=== PATIENT | male | born 1935 | race Caucasian/White ===

== ENCOUNTER 2021-02-19 07:11 | Inpatient (IN) ==
[2021-02-19] MEDS ORDERED: Morphine 4 MG/ML VIAL (1 ml) IV ONE (07:45)
[2021-02-19 07:58] LABS: Hematocrit 47 % (42-52); Hemoglobin 16.1 g/dL (14.0-18.0); Mean Corpuscular HGB Conc 34 g/dL (31-36); Mean Corpuscular Hemoglobin 33 pg (27-31); Mean Corpuscular Volume 98 fL (80-94); Platelet Count 278 10^3/uL (150-450); Red Blood Count 4.85 10^6 /uL (4.18-5.48); Red Cell Distribution Width 14 % (10-15); White Blood Count 4.9 10^3/uL (3.5-10.8)
[2021-02-19 08:01] LABS: Albumin/Globulin Ratio 1.2 (1-3); C Reactive Protein 6.94 mg/L (<8.01); Calcium 10.7 mg/dL (8.6-10.3); EGFR African American 46.1 (>60); EGFR Non-African American 38.1 (>60); Globulin 3.3 g/dL (2-4); Potassium 3.6 mmol/L (3.5-5.0); Total Bilirubin 0.8 mg/dL (0.2-1.0); Total Protein 7.3 g/dL (6.4-8.9)
[2021-02-19] MEDS ORDERED: Iodixanol (CONTRAST) 320 MG/ML 100 ML SDV IV ONE (08:11)
[2021-02-19] MEDS ORDERED: NS 0.9% IV ONE (08:15)
[2021-02-19 08:23] LABS: RBC Morphology Normal (Normal)
[2021-02-19] MEDS ORDERED: Piperacillin/Tazobac ADVAN 3.375 GM in NS 0.9% 100 ml BAG 100 ML IV ONE (09:02)
[2021-02-19] MEDS ORDERED: Ondansetron 4 mg VIAL 2 MG/ML 2 ml VIAL IV PRN (09:56)
[2021-02-19] MEDS ORDERED: HYDROmorphone 1 MG/1 ML SYRINGE IV SLOW PU PRN (09:56)
[2021-02-19] MEDS ORDERED: Midazolam 2 mg/2 ml VIAL 1 mg/ml 2 ml VIAL (2 mg) ONE (10:04)
[2021-02-19] MEDS ORDERED: Dexamethasone IV 4 MG/ML VIAL 1 ml VIAL ONE (10:04)
[2021-02-19] MEDS ORDERED: fentaNYL 250 mcg/5 ml 50 MCG/ML 5 ml VIAL (250 MCG) ONE (10:04)
[2021-02-19] MEDS ORDERED: Propofol 10 MG/ML 20 ML BTL ONE (10:04)
[2021-02-19] MEDS ORDERED: Rocuronium 50 mg VIAL 10 mg/ml 5 ml VIAL (50 mg) ONE ×2 (10:04→12:32)
[2021-02-19] MEDS ORDERED: Lidocaine 2% PF 5 ML VIAL ONE (10:05)
[2021-02-19] MEDS ORDERED: Bupivacaine 0.5% SDV PF 30ML VIAL ONE (10:40)
[2021-02-19] MEDS ORDERED: Phenylephrine IV 10 MG/ML 1 ml VIAL ONE (11:46)
[2021-02-19] MEDS ORDERED: Phenylephrine 40 mcg/mL 10mL (400mcg) SYRINGE ONE (11:46)
[2021-02-19] MEDS ORDERED: Ondansetron 4 mg VIAL 2 MG/ML 2 ml VIAL ONE (12:22)
[2021-02-19] MEDS ORDERED: Etomidate 20 mg/10 ml 2 MG/ML 10 ml VIAL ONE (12:23)
[2021-02-19 12:52] LABS: PCO2 Arterial 36 mmHg (35-45); PO2 Arterial 142 mmHg (80-100)
[2021-02-19] MEDS ORDERED: Sodium Bicarbonate 8.4% VIAL 1 MEQ/ML 50 ml VIAL (50 meq) ONE (13:04)
[2021-02-19] MEDS: Piperacillin/Tazobactam VIAL 3.375 GM in NS 0.9% 100 ml BAG 100 ML IVPB SCH ×2 (15:33→22:49)
[2021-02-19] MEDS ORDERED: fentaNYL 100 mcg/2 ml 50 MCG/ML VIAL IV SLOW PU ONE (15:35)
[2021-02-19] MEDS: fentaNYL INFUSION BAG 50MCG/ML 2,500 MCG/50 ML BAG IV SCH (15:57)
[2021-02-19] MEDS ORDERED: Norepinephrine 16MCG/ML IVPRE 4,000 MCG/250 ML BAG IV SCH (16:00)
[2021-02-19 16:29] LABS: PCO2 Arterial 33 mmHg (35-45); PO2 Arterial 111 mmHg (80-100)
[2021-02-19 17:03] LABS: INR 1.07 (0.82-1.09)
[2021-02-19 17:11] LABS: Albumin 2.1 g/dL (3.2-5.2); Albumin/Globulin Ratio 1.3 (1-3); Calcium 7.5 mg/dL (8.6-10.3); EGFR African American 82.3 (>60); Globulin 1.6 g/dL (2-4); Magnesium 1.5 mg/dL (1.9-2.7); Phosphorus 3.4 mg/dL (2.5-5.0); Total Bilirubin 0.9 mg/dL (0.2-1.0); Total Protein 3.7 g/dL (6.4-8.9)
[2021-02-19] MEDS: Lactated Ringers 1000 ml BAG 1,000 ML IV SCH (17:35)
[2021-02-19] MEDS: Chlorhexidine MOUTHWASH 0.12% 15 ML UDC SWISH SPIT SCH ×2 (17:37→22:51)
[2021-02-19] MEDS: Pantoprazole VIAL 40 MG VIAL IV SCH (17:37)
[2021-02-19] MEDS ORDERED: Magnesium Sulf 4 GM/100 ML IV 4,000 MG/100 ML BAG IVPB ONE (17:42)
[2021-02-19 19:35] LABS: Hematocrit 41 % (42-52); Hemoglobin 13.4 g/dL (14.0-18.0); Mean Corpuscular HGB Conc 33 g/dL (31-36); Mean Corpuscular Hemoglobin 33 pg (27-31); Mean Corpuscular Volume 100 fL (80-94); Mean Platelet Volume 8.3 fL (7.4-10.4); Platelet Count 222 10^3/uL (150-450); Red Blood Count 4.04 10^6 /uL (4.18-5.48); Red Cell Distribution Width 14 % (10-15); White Blood Count 3.3 10^3/uL (3.5-10.8)
[2021-02-19] MEDS: Norepinephrine 16MCG/ML IVPRE 4,000 MCG/250 ML BAG IV SCH ×2 (19:35→21:13)
[2021-02-19] MEDS: Hydrocortisone INJ 100 MG/2ML 2 ML VIAL IV SCH (19:38)
[2021-02-19 19:47] LABS: Urine Appearance Clear; Urine Bilirubin Negative (Negative); Urine Blood 2+ (Negative); Urine Color Amber; Urine Glucose Negative (Negative); Urine Ketones Trace (Negative); Urine Nitrite Negative (Negative); Urine Protein 1+(30 mg/dL) (Negative); Urine Specific Gravity 1.047 (1.002-1.030); Urine Urobilinogen Negative (Negative)
[2021-02-19 19:51] LABS: Urine Bacteria Absent (Absent); Urine Red Blood Cell 3+(>10/hpf) (Absent); Urine Squamous Epithelial Cell Present (Absent); Urine White Blood Cell Trace(0-5/hpf) (Absent)
[2021-02-19] MEDS: Phenylephrine IV 50 MG in NS 0.9% 250 ml 245 ML IV SCH (20:36)
[2021-02-19 20:56] LABS: RBC Morphology Normal (Normal)
[2021-02-19 20:57] LABS: ABS Lymphocytes 0.5 10^3/ul (1.0-4.8); ABS Monocytes 0.4 10^3/ul (0-0.8); ABS Neutrophils 2.4 10^3/ul (1.5-7.7); Eosinophil % 0.1 %; Lymphocyte % 14.6 %
[2021-02-19] MEDS: Norepinephrine IV 8 MG in NS 0.9% 500 ml BAG 492 ML IV SCH (22:49)
[2021-02-19] MEDS: Heparin 5000 UNITS/ML 1 mL VIAL SUBCUT SCH (22:51)
[2021-02-19] MEDS ORDERED: NS 0.9% IV SCH (23:00)
[2021-02-19] MEDS ORDERED: NOREPINEPHRINE IV SCH (23:00)
[2021-02-20] MEDS ORDERED: Norepinephrine 16MCG/ML IVPRE 0 MCG/0 ML BAG IV ONE (02:19)
[2021-02-20] MEDS: Norepinephrine IV 8 MG in NS 0.9% 500 ml BAG 492 ML IV SCH ×4 (02:22→15:35)
[2021-02-20] MEDS: Chlorhexidine MOUTHWASH 0.12% 15 ML UDC SWISH SPIT SCH ×6 (02:24→21:13)
[2021-02-20] MEDS ORDERED: Acetaminophen IV 1 GM/100ML 100 ML IVPB ONE (03:11)
[2021-02-20] MEDS: fentaNYL INFUSION BAG 50MCG/ML 2,500 MCG/50 ML BAG IV SCH (04:04)
[2021-02-20] MEDS: Lactated Ringers 1000 ml BAG 1,000 ML IV SCH ×2 (04:41→14:35)
[2021-02-20 04:45] LABS: Hematocrit 40 % (42-52); Hemoglobin 13.2 g/dL (14.0-18.0); Mean Corpuscular HGB Conc 33 g/dL (31-36); Mean Corpuscular Hemoglobin 33 pg (27-31); Mean Corpuscular Volume 99 fL (80-94); Mean Platelet Volume 8.6 fL (7.4-10.4); Platelet Count 216 10^3/uL (150-450); Red Blood Count 3.99 10^6 /uL (4.18-5.48); Red Cell Distribution Width 14 % (10-15); White Blood Count 6.6 10^3/uL (3.5-10.8)
[2021-02-20 05:00] LABS: Calcium 7.5 mg/dL (8.6-10.3); EGFR African American 44.3 (>60); EGFR Non-African American 36.6 (>60); Magnesium 2.4 mg/dL (1.9-2.7); Phosphorus 3.6 mg/dL (2.5-5.0)
[2021-02-20] MEDS: Phenylephrine IV 50 MG in NS 0.9% 250 ml 245 ML IV SCH ×3 (05:46→21:13)
[2021-02-20] MEDS: Heparin 5000 UNITS/ML 1 mL VIAL SUBCUT SCH ×3 (05:46→21:18)
[2021-02-20] MEDS: Hydrocortisone INJ 100 MG/2ML 2 ML VIAL IV SCH ×3 (05:46→21:18)
[2021-02-20] MEDS: Piperacillin/Tazobactam VIAL 3.375 GM in NS 0.9% 100 ml BAG 100 ML IVPB SCH ×3 (05:46→21:18)
[2021-02-20 05:51] LABS: ABS Lymphocytes 0.7 10^3/ul (1.0-4.8); ABS Monocytes 0.3 10^3/ul (0-0.8); ABS Neutrophils 5.6 10^3/ul (1.5-7.7); Lymphocyte % 10.4 %
[2021-02-20] MEDS ORDERED: Norepinephrine 16MCG/ML IVPRE 4,000 MCG/250 ML BAG IV ONE (09:26)
[2021-02-20] MEDS: Pantoprazole VIAL 40 MG VIAL IV SCH (09:33)
[2021-02-20] MEDS ORDERED: Vasopressin 100 UNITS in D5W 250 ml BAG 245 ML IV SCH (11:30)
[2021-02-20] MEDS: Vasopressin 100 UNITS in D5W 250 ml BAG 245 ML IV SCH (12:05)
[2021-02-20] MEDS ORDERED: D5LR 1000 ml BAG 1,000 ML IV SCH (19:00)
[2021-02-20 19:59] LABS: PCO2 Arterial 32 mmHg (35-45); PO2 Arterial 106 mmHg (80-100)
[2021-02-20 20:08] LABS: ABS Lymphocytes 0.5 10^3/ul (1.0-4.8); ABS Monocytes 0.3 10^3/ul (0-0.8); ABS Neutrophils 9.9 10^3/ul (1.5-7.7); Hematocrit 35 % (42-52); Hemoglobin 11.6 g/dL (14.0-18.0); Lymphocyte % 4.7 %; Mean Corpuscular HGB Conc 34 g/dL (31-36); Mean Corpuscular Hemoglobin 33 pg (27-31); Mean Corpuscular Volume 99 fL (80-94); Platelet Count 172 10^3/uL (150-450); Red Blood Count 3.51 10^6 /uL (4.18-5.48); Red Cell Distribution Width 14 % (10-15); White Blood Count 10.7 10^3/uL (3.5-10.8)
[2021-02-20 20:17] LABS: Blood Urea Nitrogen 39 mg/dL (6-24); CO2 Carbon Dioxide 15 mmol/L (22-32); Glucose 91 mg/dL (70-100); Sodium 140 mmol/L (135-145)
[2021-02-20 20:18] LABS: Anion Gap 9 mmol/L (2-11); Chloride 116 mmol/L (101-111); Potassium 5.2 mmol/L (3.5-5.0)
[2021-02-20 20:24] LABS: Troponin I 0.09 ng/mL (<0.03)
[2021-02-20] MEDS ORDERED: Dextrose 50% Syringe 50 ml 25 GM/50 ML SYRINGE IV PUSH ONE (21:21)
[2021-02-20] MEDS ORDERED: Dextrose 50% Syringe 50 ml 25 GM/50 ML SYRINGE IV PUSH PRN (21:21)
[2021-02-20 21:30] LABS: EGFR African American 36.4 (>60); EGFR Non-African American 30.1 (>60)
[2021-02-20 21:31] LABS: RBC Morphology Normal (Normal)
[2021-02-20] MEDS: Sodium Bicarb 8.4% Vial 50 ML 150 MEQ in D5W 1000 ml BAG 850 ML IV SCH (22:01)
[2021-02-21] MEDS: Chlorhexidine MOUTHWASH 0.12% 15 ML UDC SWISH SPIT SCH ×6 (00:14→22:03)
[2021-02-21] MEDS: Phenylephrine IV 50 MG in NS 0.9% 250 ml 245 ML IV SCH ×4 (01:53→22:46)
[2021-02-21] MEDS: fentaNYL INFUSION BAG 50MCG/ML 2,500 MCG/50 ML BAG IV SCH (03:23)
[2021-02-21 04:41] LABS: Hematocrit 33 % (42-52); Hemoglobin 11.1 g/dL (14.0-18.0); Mean Corpuscular HGB Conc 34 g/dL (31-36); Mean Corpuscular Hemoglobin 33 pg (27-31); Mean Corpuscular Volume 98 fL (80-94); Mean Platelet Volume 9.1 fL (7.4-10.4); Red Blood Count 3.35 10^6 /uL (4.18-5.48); Red Cell Distribution Width 14 % (10-15); White Blood Count 12.1 10^3/uL (3.5-10.8)
[2021-02-21 04:58] LABS: Albumin 2.3 g/dL (3.2-5.2); Albumin/Globulin Ratio 1.2 (1-3); EGFR Non-African American 31.4 (>60); Magnesium 2.4 mg/dL (1.9-2.7); Phosphorus 4.4 mg/dL (2.5-5.0); Potassium 4.8 mmol/L (3.5-5.0); Total Bilirubin 0.5 mg/dL (0.2-1.0); Total Protein 4.3 g/dL (6.4-8.9)
[2021-02-21 05:26] LABS: Toxic Granulation 2+
[2021-02-21 05:28] LABS: Burr Cells 2+
[2021-02-21 05:31] LABS: Basophilic Stippling 1+; Polychromasia 1+
[2021-02-21 05:34] LABS: Acanthocytes 1+; RBC Morphology Normal (Normal)
[2021-02-21 05:36] LABS: Howell Jolly Bodies Present
[2021-02-21 05:37] LABS: ABS Lymphocytes 0.5 10^3/ul (1.0-4.8); ABS Monocytes 0.3 10^3/ul (0-0.8); ABS Neutrophils 11.4 10^3/ul (1.5-7.7); Lymphocyte % 3.9 %
[2021-02-21 05:45] LABS: PCO2 Arterial 34 mmHg (35-45); PO2 Arterial 114 mmHg (80-100)
[2021-02-21] MEDS: Hydrocortisone INJ 100 MG/2ML 2 ML VIAL IV SCH ×3 (05:48→22:07)
[2021-02-21] MEDS: Heparin 5000 UNITS/ML 1 mL VIAL SUBCUT SCH ×3 (05:48→22:04)
[2021-02-21] MEDS: Piperacillin/Tazobactam VIAL 3.375 GM in NS 0.9% 100 ml BAG 100 ML IVPB SCH ×3 (05:49→22:07)
[2021-02-21] MEDS: Pantoprazole VIAL 40 MG VIAL IV SCH (08:18)
[2021-02-21] MEDS ORDERED: LORazepam 2 mg VIAL 1 ml IV PUSH PRN (08:56)
[2021-02-21] MEDS ORDERED: Lorazepam PYXIS KEY PRN (08:56)
[2021-02-21] MEDS: Saline FLUSH-CENTRAL 10 ML SYRINGE CENT\\PICC SCH ×2 (10:33→22:08)
[2021-02-21 15:30] LABS: PCO2 Arterial 36 mmHg (35-45); PO2 Arterial 105 mmHg (80-100)
[2021-02-21] MEDS: Sodium Bicarb 8.4% Vial 50 ML 150 MEQ in D5W 1000 ml BAG 850 ML IV SCH (18:03)
[2021-02-22] MEDS: Chlorhexidine MOUTHWASH 0.12% 15 ML UDC SWISH SPIT SCH ×6 (01:21→20:21)
[2021-02-22 04:40] LABS: Hematocrit 28 % (42-52); Hemoglobin 9.6 g/dL (14.0-18.0); Mean Corpuscular HGB Conc 34 g/dL (31-36); Mean Corpuscular Hemoglobin 33 pg (27-31); Mean Corpuscular Volume 97 fL (80-94); Mean Platelet Volume 9.3 fL (7.4-10.4); Platelet Count 133 10^3/uL (150-450); Red Blood Count 2.91 10^6 /uL (4.18-5.48); Red Cell Distribution Width 14 % (10-15); White Blood Count 12.1 10^3/uL (3.5-10.8)
[2021-02-22 04:57] LABS: Calcium 7.2 mg/dL (8.6-10.3); EGFR African American 46.7 (>60); EGFR Non-African American 38.6 (>60); Magnesium 2.5 mg/dL (1.9-2.7); Phosphorus 3.6 mg/dL (2.5-5.0); Potassium 4.1 mmol/L (3.5-5.0)
[2021-02-22 05:21] LABS: RBC Morphology Normal (Normal)
[2021-02-22 05:22] LABS: ABS Lymphocytes 0.5 10^3/ul (1.0-4.8); ABS Monocytes 0.2 10^3/ul (0-0.8); ABS Neutrophils 11.3 10^3/ul (1.5-7.7); Lymphocyte % 4.1 %
[2021-02-22] MEDS: Vasopressin 100 UNITS in D5W 250 ml BAG 245 ML IV SCH (05:52)
[2021-02-22] MEDS: Piperacillin/Tazobactam VIAL 3.375 GM in NS 0.9% 100 ml BAG 100 ML IVPB SCH ×3 (06:39→22:02)
[2021-02-22] MEDS: Hydrocortisone INJ 100 MG/2ML 2 ML VIAL IV SCH ×3 (06:39→22:02)
[2021-02-22] MEDS: Heparin 5000 UNITS/ML 1 mL VIAL SUBCUT SCH ×3 (06:40→22:02)
[2021-02-22] MEDS: Pantoprazole VIAL 40 MG VIAL IV SCH (09:21)
[2021-02-22] MEDS: Saline FLUSH-CENTRAL 10 ML SYRINGE CENT\\PICC SCH ×2 (09:21→22:09)
[2021-02-22] MEDS ORDERED: Furosemide 40 mg/4 ml IV VIAL ONE (11:09)
[2021-02-22] MEDS ORDERED: Furosemide 40 mg/4 ml IV VIAL IV SLOW PU ONE (11:18)
[2021-02-22] MEDS: Acetaminophen IV 1 GM/100ML 100 ML IVPB SCH ×2 (14:02→22:08)
[2021-02-22 16:00] LABS: PCO2 Arterial 34 mmHg (35-45); PO2 Arterial 78 mmHg (80-100)
[2021-02-22 16:43] LABS: Calcium 7.5 mg/dL (8.6-10.3); EGFR African American 47.3 (>60); EGFR Non-African American 39.1 (>60); Potassium 3.5 mmol/L (3.5-5.0)
[2021-02-22] MEDS: KCL 20 MEQ/100 ML IVPREMIX 20 MEQ/100 ML BAG IV SCH ×2 (17:45→20:01)
[2021-02-23] MEDS: Chlorhexidine MOUTHWASH 0.12% 15 ML UDC SWISH SPIT SCH ×6 (01:27→22:06)
[2021-02-23 05:12] LABS: Hematocrit 31 % (42-52); Hemoglobin 10.4 g/dL (14.0-18.0); Mean Corpuscular HGB Conc 34 g/dL (31-36); Mean Corpuscular Hemoglobin 33 pg (27-31); Mean Corpuscular Volume 97 fL (80-94); Mean Platelet Volume 9.2 fL (7.4-10.4); Platelet Count 101 10^3/uL (150-450); Red Blood Count 3.15 10^6 /uL (4.18-5.48); Red Cell Distribution Width 14 % (10-15); White Blood Count 12.3 10^3/uL (3.5-10.8)
[2021-02-23 05:16] LABS: Calcium 7.8 mg/dL (8.6-10.3); EGFR African American 54.4 (>60); EGFR Non-African American 44.9 (>60); Magnesium 2.6 mg/dL (1.9-2.7); Phosphorus 2.7 mg/dL (2.5-5.0); Potassium 3.7 mmol/L (3.5-5.0)
[2021-02-23 05:38] LABS: RBC Morphology Normal (Normal)
[2021-02-23 05:40] LABS: ABS Lymphocytes 0.5 10^3/ul (1.0-4.8); ABS Monocytes 0.3 10^3/ul (0-0.8); ABS Neutrophils 11.5 10^3/ul (1.5-7.7); Eosinophil % 0.1 %; Lymphocyte % 4.3 %; Nucleated Red Blood Cells % 0.2
[2021-02-23] MEDS: Heparin 5000 UNITS/ML 1 mL VIAL SUBCUT SCH ×3 (06:12→22:17)
[2021-02-23] MEDS: Acetaminophen IV 1 GM/100ML 100 ML IVPB SCH ×2 (06:12→13:58)
[2021-02-23] MEDS: Hydrocortisone INJ 100 MG/2ML 2 ML VIAL IV SCH ×3 (06:12→22:19)
[2021-02-23] MEDS: Piperacillin/Tazobactam VIAL 3.375 GM in NS 0.9% 100 ml BAG 100 ML IVPB SCH ×3 (06:13→22:20)
[2021-02-23] MEDS: Pantoprazole VIAL 40 MG VIAL IV SCH (08:56)
[2021-02-23] MEDS: Saline FLUSH-CENTRAL 10 ML SYRINGE CENT\\PICC SCH ×2 (08:57→22:20)
[2021-02-23 11:07] LABS: PCO2 Arterial 37 mmHg (35-45); PO2 Arterial 72 mmHg (80-100)
[2021-02-23] MEDS ORDERED: Metoprolol Tartrate 5 mg VIAL 5 ml VIAL (1 mg/ml) IV ONE (13:21)
[2021-02-23] MEDS ORDERED: KCL 20 MEQ/100 ML IVPREMIX 20 MEQ/100 ML BAG IV ONE (13:22)
[2021-02-23] MEDS ORDERED: Digoxin IV 0.5 MG/2 ML AMP (0.25 MG/ML) IV SLOW PU ONE (18:05)
[2021-02-23] MEDS ORDERED: HYDROmorphone 0.5 MG/0.5 ML SYRINGE IV SLOW PU PRN (21:46)
[2021-02-23] MEDS ORDERED: Acetaminophen IV 1 GM/100ML 100 ML IVPB ONE (22:18)
[2021-02-24] MEDS ORDERED: Metoprolol Tartrate 5 mg VIAL 5 ml VIAL (1 mg/ml) IV ONE (02:03)
[2021-02-24] MEDS: Chlorhexidine MOUTHWASH 0.12% 15 ML UDC SWISH SPIT SCH ×6 (03:10→20:23)
[2021-02-24] MEDS: Piperacillin/Tazobactam VIAL 3.375 GM in NS 0.9% 100 ml BAG 100 ML IVPB SCH ×3 (05:18→22:21)
[2021-02-24 06:08] LABS: Hematocrit 31 % (42-52); Hemoglobin 10.2 g/dL (14.0-18.0); Mean Corpuscular HGB Conc 34 g/dL (31-36); Mean Corpuscular Hemoglobin 32 pg (27-31); Mean Corpuscular Volume 97 fL (80-94); Mean Platelet Volume 9.5 fL (7.4-10.4); Platelet Count 103 10^3/uL (150-450); Red Blood Count 3.16 10^6 /uL (4.18-5.48); Red Cell Distribution Width 14 % (10-15); White Blood Count 12.3 10^3/uL (3.5-10.8)
[2021-02-24 06:17] LABS: Calcium 7.9 mg/dL (8.6-10.3); EGFR African American 74.8 (>60); EGFR Non-African American 61.8 (>60); Magnesium 2.6 mg/dL (1.9-2.7); Phosphorus 2.4 mg/dL (2.5-5.0); Potassium 3.8 mmol/L (3.5-5.0)
[2021-02-24 06:25] LABS: Macrocytosis 1+
[2021-02-24 06:26] LABS: ABS Lymphocytes 0.4 10^3/ul (1.0-4.8); ABS Monocytes 0.4 10^3/ul (0-0.8); ABS Neutrophils 11.4 10^3/ul (1.5-7.7); Anisocytosis 1+; Eosinophil % 0.1 %; Lymphocyte % 3.6 %; Nucleated Red Blood Cells % 0.1
[2021-02-24] MEDS: Pantoprazole VIAL 40 MG VIAL IV SCH (07:24)
[2021-02-24] MEDS: Hydrocortisone INJ 100 MG/2ML 2 ML VIAL IV SCH ×2 (07:24→20:23)
[2021-02-24] MEDS: Heparin 5000 UNITS/ML 1 mL VIAL SUBCUT SCH ×2 (07:24→13:21)
[2021-02-24] MEDS ORDERED: Potassium Phosphate IV 15 MMOLE in NS 0.9% 250 ml 250 ML IVPB ONE (07:57)
[2021-02-24] MEDS: Saline FLUSH-CENTRAL 10 ML SYRINGE CENT\\PICC SCH ×2 (09:36→22:22)
[2021-02-24] MEDS ORDERED: NS 0.45% 1000 ml BAG 1,000 ML IV SCH (16:00)
[2021-02-25] MEDS: Chlorhexidine MOUTHWASH 0.12% 15 ML UDC SWISH SPIT SCH ×3 (01:36→10:21)
[2021-02-25] MEDS: Piperacillin/Tazobactam VIAL 3.375 GM in NS 0.9% 100 ml BAG 100 ML IVPB SCH ×3 (05:57→21:27)
[2021-02-25 06:11] LABS: Hematocrit 30 % (42-52); Hemoglobin 10.1 g/dL (14.0-18.0); Mean Corpuscular HGB Conc 34 g/dL (31-36); Mean Corpuscular Hemoglobin 32 pg (27-31); Mean Corpuscular Volume 96 fL (80-94); Mean Platelet Volume 9.6 fL (7.4-10.4); Platelet Count 119 10^3/uL (150-450); Red Blood Count 3.12 10^6 /uL (4.18-5.48); Red Cell Distribution Width 14 % (10-15)
[2021-02-25 06:27] LABS: Calcium 7.8 mg/dL (8.6-10.3); EGFR African American 91.4 (>60); EGFR Non-African American 75.5 (>60); Magnesium 2.2 mg/dL (1.9-2.7); Phosphorus 2.7 mg/dL (2.5-5.0); Potassium 3.5 mmol/L (3.5-5.0)
[2021-02-25 08:15] LABS: INR 1.14 (0.82-1.09)
[2021-02-25] MEDS: Pantoprazole VIAL 40 MG VIAL IV SCH (10:16)
[2021-02-25] MEDS: Hydrocortisone INJ 100 MG/2ML 2 ML VIAL IV SCH (10:19)
[2021-02-25] MEDS: Saline FLUSH-CENTRAL 10 ML SYRINGE CENT\\PICC SCH ×2 (10:21→21:28)
[2021-02-25] MEDS ORDERED: D5W 1000 ml BAG 1,000 ML IV SCH (12:00)
[2021-02-25 18:13] LABS: Calcium 7.7 mg/dL (8.6-10.3); EGFR African American 108.3 (>60); EGFR Non-African American 89.5 (>60); Potassium 3.3 mmol/L (3.5-5.0)
[2021-02-25] MEDS: KCL 20 MEQ/100 ML IVPREMIX 20 MEQ/100 ML BAG IV SCH (22:21)
[2021-02-26] MEDS: KCL 20 MEQ/100 ML IVPREMIX 20 MEQ/100 ML BAG IV SCH (00:49)
[2021-02-26 04:30] LABS: Hematocrit 32 % (42-52); Hemoglobin 10.5 g/dL (14.0-18.0); Mean Corpuscular HGB Conc 33 g/dL (31-36); Mean Corpuscular Hemoglobin 32 pg (27-31); Mean Corpuscular Volume 96 fL (80-94); Mean Platelet Volume 9.2 fL (7.4-10.4); Platelet Count 161 10^3/uL (150-450); Red Blood Count 3.28 10^6 /uL (4.18-5.48); Red Cell Distribution Width 14 % (10-15); White Blood Count 18.8 10^3/uL (3.5-10.8)
[2021-02-26 04:48] LABS: Albumin 2.3 g/dL (3.2-5.2); Albumin/Globulin Ratio 0.9 (1-3); Calcium 7.6 mg/dL (8.6-10.3); Direct Bilirubin 0.4 mg/dL (0.03-0.18); EGFR African American 121.9 (>60); EGFR Non-African American 100.8 (>60); Globulin 2.5 g/dL (2-4); Indirect Bilirubin 0.5 mg/dL (0.3-1.0); Magnesium 1.8 mg/dL (1.9-2.7); Phosphorus 1.8 mg/dL (2.5-5.0); Potassium 3.3 mmol/L (3.5-5.0); Total Bilirubin 0.9 mg/dL (0.2-1.0); Total Protein 4.8 g/dL (6.4-8.9)
[2021-02-26] MEDS: Piperacillin/Tazobactam VIAL 3.375 GM in NS 0.9% 100 ml BAG 100 ML IVPB SCH ×3 (06:05→21:25)
[2021-02-26] MEDS: Pantoprazole VIAL 40 MG VIAL IV SCH (07:41)
[2021-02-26] MEDS: Potassium Chloride LIQUID 20 MEQ/15 ML LIQUID PO SCH ×2 (08:33→12:18)
[2021-02-26] MEDS ORDERED: Potassium Phosphate IV 15 MMOLE in NS 0.9% 250 ml 250 ML IVPB ONE (09:00)
[2021-02-26] MEDS ORDERED: Iohexol 300 (CONTRAST) 10 ML SDV IV SCH (09:17)
[2021-02-26 09:30] LABS: C Reactive Protein 150.71 mg/L (<8.01)
[2021-02-26] MEDS: fentaNYL 100 mcg/2 ml 50 MCG/ML VIAL ONE ×2 (10:13→10:14)
[2021-02-26 10:30] LABS: ABS Lymphocytes 0.6 10^3/ul (1.0-4.8); ABS Monocytes 0.5 10^3/ul (0-0.8); ABS Neutrophils 17.7 10^3/ul (1.5-7.7); Lymphocyte % 3.2 %; Nucleated Red Blood Cells % 0.1
[2021-02-26 11:24] LABS: Carcinoembryonic Antigen 1.8 ng/mL (0.1-5.0)
[2021-02-26] MEDS: Saline FLUSH-CENTRAL 10 ML SYRINGE CENT\\PICC SCH ×2 (12:18→21:25)
[2021-02-26] MEDS ORDERED: Hydrocortisone INJ 100 MG/2ML 2 ML VIAL IV ONE (12:57)
[2021-02-27 04:42] LABS: Hematocrit 33 % (42-52); Hemoglobin 10.8 g/dL (14.0-18.0); Mean Corpuscular HGB Conc 33 g/dL (31-36); Mean Corpuscular Hemoglobin 32 pg (27-31); Mean Corpuscular Volume 97 fL (80-94); Platelet Count 225 10^3/uL (150-450); Red Blood Count 3.39 10^6 /uL (4.18-5.48); Red Cell Distribution Width 14 % (10-15); White Blood Count 16.5 10^3/uL (3.5-10.8)
[2021-02-27 05:01] LABS: Calcium 7.9 mg/dL (8.6-10.3); EGFR African American 116.5 (>60); EGFR Non-African American 96.2 (>60); Magnesium 1.9 mg/dL (1.9-2.7); Phosphorus 2.2 mg/dL (2.5-5.0); Potassium 3.6 mmol/L (3.5-5.0)
[2021-02-27] MEDS: Piperacillin/Tazobactam VIAL 3.375 GM in NS 0.9% 100 ml BAG 100 ML IVPB SCH ×3 (05:43→21:09)
[2021-02-27] MEDS ORDERED: Potassium Phosphate IV 15 MMOLE in NS 0.9% 250 ml 250 ML IVPB ONE (07:40)
[2021-02-27] MEDS ORDERED: Magnesium Sulfate IV 1GM/100ML 1 GM/100 ML BAG IV ONE (07:41)
[2021-02-27] MEDS: Pantoprazole VIAL 40 MG VIAL IV SCH (07:56)
[2021-02-27 09:27] LABS: C Reactive Protein 186.64 mg/L (<8.01)
[2021-02-27] MEDS ORDERED: Buffered Lidocaine 1% SYRIN 1 ml INTRADERM ONE (11:30)
[2021-02-27] MEDS: Saline FLUSH-CENTRAL 10 ML SYRINGE CENT\\PICC SCH (11:46)
[2021-02-27 21:38] LABS: HIT ELISA < 0.075 OD (<0.400); Heparin PF4 Antibody Interp Negative (Negative)
[2021-02-28 05:20] LABS: ABS Lymphocytes 0.4 10^3/ul (1.0-4.8); ABS Monocytes 0.5 10^3/ul (0-0.8); ABS Neutrophils 12.4 10^3/ul (1.5-7.7); Eosinophil % 0.1 %; Hematocrit 31 % (42-52); Hemoglobin 10.6 g/dL (14.0-18.0); Lymphocyte % 3.1 %; Mean Corpuscular HGB Conc 34 g/dL (31-36); Mean Corpuscular Hemoglobin 32 pg (27-31); Mean Corpuscular Volume 96 fL (80-94); Mean Platelet Volume 8.9 fL (7.4-10.4); Platelet Count 268 10^3/uL (150-450); Red Blood Count 3.26 10^6 /uL (4.18-5.48); Red Cell Distribution Width 15 % (10-15); White Blood Count 13.4 10^3/uL (3.5-10.8)
[2021-02-28] MEDS: Piperacillin/Tazobactam VIAL 3.375 GM in NS 0.9% 100 ml BAG 100 ML IVPB SCH ×3 (05:21→21:28)
[2021-02-28 05:46] LABS: Albumin 2.3 g/dL (3.2-5.2); Albumin/Globulin Ratio 0.8 (1-3); Calcium 7.8 mg/dL (8.6-10.3); EGFR African American 109.9 (>60); EGFR Non-African American 90.8 (>60); Globulin 2.8 g/dL (2-4); Phosphorus 2.2 mg/dL (2.5-5.0); Potassium 3.7 mmol/L (3.5-5.0); Total Bilirubin 1.9 mg/dL (0.2-1.0); Total Protein 5.1 g/dL (6.4-8.9)
[2021-02-28] MEDS: Pantoprazole VIAL 40 MG VIAL IV SCH (08:25)
[2021-02-28] MEDS ORDERED: Potassium Phosphate IV 15 MMOLE in NS 0.9% 250 ml 250 ML IVPB ONE (08:30)
[2021-02-28] MEDS: Saline FLUSH-CENTRAL 10 ML SYRINGE CENT\\PICC SCH ×2 (09:30→21:28)
[2021-03-01] MEDS: Piperacillin/Tazobactam VIAL 3.375 GM in NS 0.9% 100 ml BAG 100 ML IVPB SCH ×3 (05:13→21:52)
[2021-03-01 05:21] LABS: Hematocrit 28 % (42-52); Hemoglobin 9.6 g/dL (14.0-18.0); Mean Corpuscular HGB Conc 34 g/dL (31-36); Mean Corpuscular Hemoglobin 33 pg (27-31); Mean Corpuscular Volume 95 fL (80-94); Mean Platelet Volume 8.7 fL (7.4-10.4); Platelet Count 315 10^3/uL (150-450); Red Blood Count 2.93 10^6 /uL (4.18-5.48); Red Cell Distribution Width 15 % (10-15); White Blood Count 12.1 10^3/uL (3.5-10.8)
[2021-03-01 05:38] LABS: Albumin 2.1 g/dL (3.2-5.2); Albumin/Globulin Ratio 0.8 (1-3); Calcium 7.7 mg/dL (8.6-10.3); EGFR African American 103.9 (>60); EGFR Non-African American 85.9 (>60); Globulin 2.8 g/dL (2-4); Magnesium 1.9 mg/dL (1.9-2.7); Phosphorus 2.5 mg/dL (2.5-5.0); Potassium 3.9 mmol/L (3.5-5.0); Total Bilirubin 2.2 mg/dL (0.2-1.0); Total Protein 4.9 g/dL (6.4-8.9)
[2021-03-01] MEDS: Saline FLUSH-CENTRAL 10 ML SYRINGE CENT\\PICC SCH ×2 (09:52→21:53)
[2021-03-01] MEDS: Pantoprazole VIAL 40 MG VIAL IV SCH (10:08)
[2021-03-01] MEDS ORDERED: Enoxaparin 80 MG/0.8 ML SYR SUBCUT SCH (15:00)
[2021-03-01] MEDS ORDERED: Enoxaparin 100 MG/ML SYR SUBCUT SCH (15:00)
[2021-03-01] MEDS: Enoxaparin 100 MG/ML SYR SUBCUT SCH (21:52)
[2021-03-02 04:41] LABS: ABS Basophils 0.1 10^3/ul (0-0.2); ABS Eosinophils 0.1 10^3/ul (0-0.6); ABS Lymphocytes 0.6 10^3/ul (1.0-4.8); ABS Monocytes 0.8 10^3/ul (0-0.8); ABS Neutrophils 9.1 10^3/ul (1.5-7.7); Eosinophil % 1.3 %; Hematocrit 29 % (42-52); Hemoglobin 9.6 g/dL (14.0-18.0); Lymphocyte % 6.1 %; Mean Corpuscular HGB Conc 34 g/dL (31-36); Mean Corpuscular Hemoglobin 33 pg (27-31); Mean Corpuscular Volume 97 fL (80-94); Mean Platelet Volume 8.7 fL (7.4-10.4); Platelet Count 382 10^3/uL (150-450); Red Blood Count 2.95 10^6 /uL (4.18-5.48); Red Cell Distribution Width 15 % (10-15); White Blood Count 10.7 10^3/uL (3.5-10.8)
[2021-03-02 04:56] LABS: Calcium 7.8 mg/dL (8.6-10.3); EGFR African American 92.5 (>60); EGFR Non-African American 76.5 (>60); Potassium 3.8 mmol/L (3.5-5.0)
[2021-03-02] MEDS: Piperacillin/Tazobactam VIAL 3.375 GM in NS 0.9% 100 ml BAG 100 ML IVPB SCH ×3 (05:38→22:18)
[2021-03-02] MEDS: Enoxaparin 100 MG/ML SYR SUBCUT SCH ×2 (09:18→22:18)
[2021-03-02] MEDS: Saline FLUSH-CENTRAL 10 ML SYRINGE CENT\\PICC SCH ×2 (09:38→22:19)
[2021-03-03] MEDS: Piperacillin/Tazobactam VIAL 3.375 GM in NS 0.9% 100 ml BAG 100 ML IVPB SCH ×3 (05:58→22:41)
[2021-03-03 06:43] LABS: ABS Basophils 0.1 10^3/ul (0-0.2); ABS Eosinophils 0.1 10^3/ul (0-0.6); ABS Lymphocytes 0.7 10^3/ul (1.0-4.8); ABS Monocytes 0.7 10^3/ul (0-0.8); ABS Neutrophils 8.7 10^3/ul (1.5-7.7); Hematocrit 28 % (42-52); Hemoglobin 9.3 g/dL (14.0-18.0); Lymphocyte % 7.1 %; Mean Corpuscular HGB Conc 34 g/dL (31-36); Mean Corpuscular Hemoglobin 32 pg (27-31); Mean Corpuscular Volume 96 fL (80-94); Platelet Count 456 10^3/uL (150-450); Red Blood Count 2.88 10^6 /uL (4.18-5.48); Red Cell Distribution Width 14 % (10-15); White Blood Count 10.3 10^3/uL (3.5-10.8)
[2021-03-03 07:08] LABS: Calcium 7.9 mg/dL (8.6-10.3); Potassium 3.8 mmol/L (3.5-5.0)
[2021-03-03 07:13] LABS: EGFR African American 114.7 (>60); EGFR Non-African American 94.8 (>60)
[2021-03-03] MEDS: Enoxaparin 100 MG/ML SYR SUBCUT SCH (09:20)
[2021-03-03] MEDS: Saline FLUSH-CENTRAL 10 ML SYRINGE CENT\\PICC SCH ×2 (09:22→22:48)
[2021-03-03] MEDS ORDERED: oxyCODONE/Acetamin 5/325 mg TAB PO ONE (21:14)
[2021-03-04] MEDS: Piperacillin/Tazobactam VIAL 3.375 GM in NS 0.9% 100 ml BAG 100 ML IVPB SCH ×3 (06:53→22:45)
[2021-03-04 07:28] LABS: ABS Eosinophils 0.1 10^3/ul (0-0.6); ABS Lymphocytes 0.6 10^3/ul (1.0-4.8); ABS Monocytes 0.7 10^3/ul (0-0.8); ABS Neutrophils 8.6 10^3/ul (1.5-7.7); Eosinophil % 0.8 %; Hematocrit 27 % (42-52); Hemoglobin 9.3 g/dL (14.0-18.0); Lymphocyte % 6.2 %; Mean Corpuscular HGB Conc 35 g/dL (31-36); Mean Corpuscular Hemoglobin 33 pg (27-31); Mean Corpuscular Volume 96 fL (80-94); Mean Platelet Volume 8.3 fL (7.4-10.4); Platelet Count 478 10^3/uL (150-450); Red Blood Count 2.82 10^6 /uL (4.18-5.48); Red Cell Distribution Width 14 % (10-15); White Blood Count 10.1 10^3/uL (3.5-10.8)
[2021-03-04 07:44] LABS: Calcium 7.9 mg/dL (8.6-10.3); EGFR African American 111.4 (>60); EGFR Non-African American 92.1 (>60); Potassium 3.8 mmol/L (3.5-5.0)
[2021-03-04] MEDS: Saline FLUSH-CENTRAL 10 ML SYRINGE CENT\\PICC SCH ×2 (08:40→22:47)
[2021-03-04] MEDS ORDERED: Iohexol 300 (CONTRAST) 10 ML SDV IV ONE (16:26)
[2021-03-04] MEDS: oxyCODONE/Acetamin 5/325 mg TAB PO PRN (22:46)
[2021-03-05 05:25] LABS: ABS Eosinophils 0.1 10^3/ul (0-0.6); ABS Lymphocytes 0.8 10^3/ul (1.0-4.8); ABS Monocytes 0.8 10^3/ul (0-0.8); ABS Neutrophils 8.2 10^3/ul (1.5-7.7); Eosinophil % 0.5 %; Hematocrit 28 % (42-52); Hemoglobin 9.2 g/dL (14.0-18.0); Lymphocyte % 7.9 %; Mean Corpuscular HGB Conc 33 g/dL (31-36); Mean Corpuscular Hemoglobin 32 pg (27-31); Mean Corpuscular Volume 96 fL (80-94); Mean Platelet Volume 8.1 fL (7.4-10.4); Platelet Count 537 10^3/uL (150-450); Red Blood Count 2.92 10^6 /uL (4.18-5.48); Red Cell Distribution Width 15 % (10-15); White Blood Count 9.8 10^3/uL (3.5-10.8)
[2021-03-05 05:42] LABS: EGFR African American 98.5 (>60); EGFR Non-African American 81.4 (>60); Potassium 3.7 mmol/L (3.5-5.0)
[2021-03-05] MEDS: Piperacillin/Tazobactam VIAL 3.375 GM in NS 0.9% 100 ml BAG 100 ML IVPB SCH (07:28)
[2021-03-05] MEDS: oxyCODONE/Acetamin 5/325 mg TAB PO PRN ×2 (09:59→21:01)
[2021-03-05] MEDS: Saline FLUSH-CENTRAL 10 ML SYRINGE CENT\\PICC SCH ×2 (10:00→21:02)
[2021-03-05 13:01] LABS: INR 1.41 (0.82-1.09)
[2021-03-05] MEDS ORDERED: fentaNYL 100 mcg/2 ml 50 MCG/ML VIAL ONE (13:50)
[2021-03-06 06:20] LABS: ABS Eosinophils 0.1 10^3/ul (0-0.6); ABS Lymphocytes 0.8 10^3/ul (1.0-4.8); ABS Monocytes 0.7 10^3/ul (0-0.8); ABS Neutrophils 7.3 10^3/ul (1.5-7.7); Eosinophil % 0.7 %; Hematocrit 28 % (42-52); Hemoglobin 9.6 g/dL (14.0-18.0); Lymphocyte % 9.4 %; Mean Corpuscular HGB Conc 35 g/dL (31-36); Mean Corpuscular Hemoglobin 33 pg (27-31); Mean Corpuscular Volume 95 fL (80-94); Mean Platelet Volume 8.1 fL (7.4-10.4); Platelet Count 550 10^3/uL (150-450); Red Blood Count 2.91 10^6 /uL (4.18-5.48); Red Cell Distribution Width 14 % (10-15)
[2021-03-06 06:47] LABS: Calcium 8.1 mg/dL (8.6-10.3); EGFR African American 111.4 (>60); EGFR Non-African American 92.1 (>60); Potassium 3.8 mmol/L (3.5-5.0)
[2021-03-06] MEDS: Enoxaparin 100 MG/ML SYR SUBCUT SCH ×2 (09:36→21:52)
[2021-03-06] MEDS: oxyCODONE/Acetamin 5/325 mg TAB PO PRN ×2 (09:41→20:13)
[2021-03-06] MEDS: Saline FLUSH-CENTRAL 10 ML SYRINGE CENT\\PICC SCH ×2 (12:04→20:14)
[2021-03-06] MEDS ORDERED: Magnesium Hydroxide LIQ 30 ML UDC PO PRN (12:55)
[2021-03-06] MEDS: Ondansetron 4 mg VIAL 2 MG/ML 2 ml VIAL IV PRN (20:13)
[2021-03-07 04:54] LABS: ABS Eosinophils 0.1 10^3/ul (0-0.6); ABS Monocytes 0.9 10^3/ul (0-0.8); Eosinophil % 0.7 %; Hematocrit 26 % (42-52); Hemoglobin 8.8 g/dL (14.0-18.0); Lymphocyte % 11.6 %; Mean Corpuscular HGB Conc 35 g/dL (31-36); Mean Corpuscular Hemoglobin 33 pg (27-31); Mean Corpuscular Volume 96 fL (80-94); Mean Platelet Volume 7.7 fL (7.4-10.4); Nucleated Red Blood Cells % 0.1; Platelet Count 517 10^3/uL (150-450); Red Blood Count 2.65 10^6 /uL (4.18-5.48); Red Cell Distribution Width 14 % (10-15)
[2021-03-07 05:14] LABS: EGFR African American 111.4 (>60); EGFR Non-African American 92.1 (>60)
[2021-03-07] MEDS: Enoxaparin 100 MG/ML SYR SUBCUT SCH (10:09)
[2021-03-07] MEDS: Saline FLUSH-CENTRAL 10 ML SYRINGE CENT\\PICC SCH ×2 (10:19→21:58)
[2021-03-07] MEDS: oxyCODONE/Acetamin 5/325 mg TAB PO PRN (14:49)
[2021-03-08] MEDS: Saline FLUSH-CENTRAL 10 ML SYRINGE CENT\\PICC SCH ×2 (08:21→21:57)
[2021-03-08] MEDS: Ondansetron 4 mg VIAL 2 MG/ML 2 ml VIAL IV PRN (15:31)
[2021-03-08] MEDS ORDERED: Metoclopramide 5 MG/ML VIAL (10 mg) IV SLOW PU PRN (19:49)
[2021-03-08] MEDS ORDERED: Metoclopramide 5 MG/ML VIAL (10 mg) ONE (19:53)
[2021-03-08] MEDS ORDERED: NS 0.9% IV SCH (21:15)
[2021-03-08 21:44] LABS: ABS Basophils 0.1 10^3/ul (0-0.2); ABS Lymphocytes 0.8 10^3/ul (1.0-4.8); ABS Monocytes 0.9 10^3/ul (0-0.8); Eosinophil % 0.3 %; Hematocrit 28 % (42-52); Hemoglobin 9.4 g/dL (14.0-18.0); Lymphocyte % 7.4 %; Mean Corpuscular HGB Conc 34 g/dL (31-36); Mean Corpuscular Hemoglobin 32 pg (27-31); Mean Corpuscular Volume 94 fL (80-94); Mean Platelet Volume 7.4 fL (7.4-10.4); Platelet Count 580 10^3/uL (150-450); Red Blood Count 2.96 10^6 /uL (4.18-5.48); Red Cell Distribution Width 14 % (10-15); White Blood Count 10.9 10^3/uL (3.5-10.8)
[2021-03-08] MEDS ORDERED: Zosyn per Pharmacy NOTE FOLLOW UP SCH (22:00)
[2021-03-08] MEDS ORDERED: Piperacillin/Tazobac ADVAN 3.375 GM in NS 0.9% 100 ml BAG 100 ML IV ONE (22:00)
[2021-03-08 22:03] LABS: Albumin 2.7 g/dL (3.2-5.2); Albumin/Globulin Ratio 0.7 (1-3); Calcium 8.5 mg/dL (8.6-10.3); EGFR African American 141.6 (>60); Globulin 4.1 g/dL (2-4); Total Bilirubin 0.8 mg/dL (0.2-1.0); Total Protein 6.8 g/dL (6.4-8.9)
[2021-03-09] MEDS: ZOSYN 3.375 GM Q8H per EXTENDED INFUSION IV SCH ×3 (01:49→17:06)
[2021-03-09 03:06] LABS: Urine Appearance Cloudy; Urine Bilirubin Negative (Negative); Urine Blood 1+ (Negative); Urine Color Yellow; Urine Glucose Negative (Negative); Urine Ketones Negative (Negative); Urine Nitrite Negative (Negative); Urine Protein Negative (Negative); Urine Specific Gravity 1.017 (1.002-1.030); Urine Urobilinogen Negative (Negative)
[2021-03-09 03:21] LABS: Urine Bacteria 1+ (Absent); Urine Granular Casts Present (Absent); Urine Red Blood Cell Trace(0-2/hpf) (Absent); Urine Squamous Epithelial Cell Present (Absent); Urine White Blood Cell Trace(0-5/hpf) (Absent)
[2021-03-09] MEDS: oxyCODONE/Acetamin 5/325 mg TAB PO PRN (07:49)
[2021-03-09] MEDS: Saline FLUSH-CENTRAL 10 ML SYRINGE CENT\\PICC SCH ×2 (07:50→22:14)
[2021-03-09] MEDS: Ondansetron 4 mg VIAL 2 MG/ML 2 ml VIAL IV PRN (16:25)
[2021-03-10] MEDS: ZOSYN 3.375 GM Q8H per EXTENDED INFUSION IV SCH ×3 (01:10→17:57)
[2021-03-10] MEDS: Saline FLUSH-CENTRAL 10 ML SYRINGE CENT\\PICC SCH ×2 (07:30→20:53)
[2021-03-10] MEDS: oxyCODONE/Acetamin 5/325 mg TAB PO PRN (14:06)
[2021-03-10] MEDS: D5W 1/2 NS 1000 ml BAG 1,000 ML IV SCH (15:55)
[2021-03-10] MEDS: Ondansetron 4 mg VIAL 2 MG/ML 2 ml VIAL IV PRN (16:02)
[2021-03-11] MEDS: ZOSYN 3.375 GM Q8H per EXTENDED INFUSION IV SCH ×3 (02:15→17:26)
[2021-03-11 05:58] LABS: ABS Basophils 0.1 10^3/ul (0-0.2); ABS Eosinophils 0.1 10^3/ul (0-0.6); ABS Lymphocytes 0.6 10^3/ul (1.0-4.8); ABS Monocytes 0.8 10^3/ul (0-0.8); ABS Neutrophils 6.5 10^3/ul (1.5-7.7); Eosinophil % 1.5 %; Hematocrit 27 % (42-52); Hemoglobin 8.9 g/dL (14.0-18.0); Lymphocyte % 6.9 %; Mean Corpuscular HGB Conc 33 g/dL (31-36); Mean Corpuscular Hemoglobin 32 pg (27-31); Mean Corpuscular Volume 95 fL (80-94); Mean Platelet Volume 7.5 fL (7.4-10.4); Platelet Count 503 10^3/uL (150-450); Red Blood Count 2.81 10^6 /uL (4.18-5.48); Red Cell Distribution Width 14 % (10-15)
[2021-03-11 06:12] LABS: Anion Gap 5 mmol/L (2-11); Blood Urea Nitrogen 12 mg/dL (6-24); CO2 Carbon Dioxide 25 mmol/L (22-32); Calcium 8.5 mg/dL (8.6-10.3); Chloride 105 mmol/L (101-111); EGFR African American 106.8 (>60); EGFR Non-African American 88.3 (>60); Glucose 103 mg/dL (70-100); Magnesium 1.8 mg/dL (1.9-2.7); Potassium 3.7 mmol/L (3.5-5.0); Sodium 135 mmol/L (135-145)
[2021-03-11] MEDS: D5W 1/2 NS 1000 ml BAG 1,000 ML IV SCH ×2 (09:06→22:53)
[2021-03-11] MEDS: Saline FLUSH-CENTRAL 10 ML SYRINGE CENT\\PICC SCH ×2 (09:08→22:58)
[2021-03-11] MEDS: Ondansetron 4 mg VIAL 2 MG/ML 2 ml VIAL IV PRN ×2 (09:15→15:01)
[2021-03-11 10:47] LABS: Total Iron Binding Capacity 183 mcg/dL (250-450); Transferrin 131 mg/dL (203-362)
[2021-03-11 10:51] LABS: % Iron Saturation 11 % (15-55); Iron < 20 ug/dL (50-212); Unsaturated Iron Binding < 168 ug/dL
[2021-03-11 11:04] LABS: Ferritin 271.2 ng/mL (24-336)
[2021-03-11 11:09] LABS: Vitamin B12 1113 pg/mL (180-914)
[2021-03-12] MEDS: ZOSYN 3.375 GM Q8H per EXTENDED INFUSION IV SCH ×3 (01:33→17:54)
[2021-03-12 05:04] LABS: ABS Basophils 0.1 10^3/ul (0-0.2); ABS Eosinophils 0.1 10^3/ul (0-0.6); ABS Lymphocytes 0.7 10^3/ul (1.0-4.8); ABS Monocytes 0.9 10^3/ul (0-0.8); ABS Neutrophils 6.4 10^3/ul (1.5-7.7); Eosinophil % 1.6 %; Hematocrit 25 % (42-52); Hemoglobin 8.5 g/dL (14.0-18.0); Mean Corpuscular HGB Conc 34 g/dL (31-36); Mean Corpuscular Hemoglobin 32 pg (27-31); Mean Corpuscular Volume 94 fL (80-94); Mean Platelet Volume 7.5 fL (7.4-10.4); Nucleated Red Blood Cells % 0.1; Platelet Count 484 10^3/uL (150-450); Red Blood Count 2.67 10^6 /uL (4.18-5.48); Red Cell Distribution Width 15 % (10-15); White Blood Count 8.2 10^3/uL (3.5-10.8)
[2021-03-12 05:29] LABS: Calcium 8.5 mg/dL (8.6-10.3); EGFR African American 120.1 (>60); EGFR Non-African American 99.2 (>60); Magnesium 1.8 mg/dL (1.9-2.7); Potassium 3.6 mmol/L (3.5-5.0)
[2021-03-12] MEDS: Saline FLUSH-CENTRAL 10 ML SYRINGE CENT\\PICC SCH ×2 (08:43→21:33)
[2021-03-12] MEDS: D5W 1/2 NS 1000 ml BAG 1,000 ML IV SCH (13:35)
[2021-03-12] MEDS: Ondansetron 4 mg VIAL 2 MG/ML 2 ml VIAL IV PRN (16:30)
[2021-03-12] MEDS: Diphenoxylat/Atrop 2.5-0.025mg TAB PO SCH (17:54)
[2021-03-13] MEDS: ZOSYN 3.375 GM Q8H per EXTENDED INFUSION IV SCH ×3 (02:07→17:43)
[2021-03-13] MEDS: D5W 1/2 NS 1000 ml BAG 1,000 ML IV SCH ×2 (02:10→15:32)
[2021-03-13 06:32] LABS: ABS Eosinophils 0.1 10^3/ul (0-0.6); ABS Lymphocytes 0.8 10^3/ul (1.0-4.8); ABS Monocytes 0.8 10^3/ul (0-0.8); ABS Neutrophils 6.4 10^3/ul (1.5-7.7); Eosinophil % 1.7 %; Hematocrit 29 % (42-52); Hemoglobin 9.2 g/dL (14.0-18.0); Lymphocyte % 9.5 %; Mean Corpuscular HGB Conc 32 g/dL (31-36); Mean Corpuscular Hemoglobin 31 pg (27-31); Mean Corpuscular Volume 98 fL (80-94); Mean Platelet Volume 7.2 fL (7.4-10.4); Nucleated Red Blood Cells % 0.1; Platelet Count 491 10^3/uL (150-450); Red Blood Count 2.98 10^6 /uL (4.18-5.48); Red Cell Distribution Width 15 % (10-15); White Blood Count 8.1 10^3/uL (3.5-10.8)
[2021-03-13 06:39] LABS: Calcium 8.5 mg/dL (8.6-10.3); EGFR African American 141.6 (>60); Magnesium 1.7 mg/dL (1.9-2.7); Potassium 3.6 mmol/L (3.5-5.0)
[2021-03-13] MEDS: Diphenoxylat/Atrop 2.5-0.025mg TAB PO SCH (08:34)
[2021-03-13] MEDS: Saline FLUSH-CENTRAL 10 ML SYRINGE CENT\\PICC SCH ×2 (08:34→22:29)
[2021-03-13] MEDS: Senna TAB 8.6 mg TAB PO PRN (08:34)
[2021-03-13] MEDS: Ondansetron 4 mg VIAL 2 MG/ML 2 ml VIAL IV PRN (08:41)
[2021-03-14] MEDS: ZOSYN 3.375 GM Q8H per EXTENDED INFUSION IV SCH (01:37)
[2021-03-14] MEDS: D5W 1/2 NS 1000 ml BAG 1,000 ML IV SCH ×2 (05:00→18:18)
[2021-03-14] MEDS: Ondansetron 4 mg VIAL 2 MG/ML 2 ml VIAL IV PRN ×2 (05:38→22:04)
[2021-03-14] MEDS: Diphenoxylat/Atrop 2.5-0.025mg TAB PO SCH ×2 (09:05→22:03)
[2021-03-14] MEDS: Saline FLUSH-CENTRAL 10 ML SYRINGE CENT\\PICC SCH ×3 (09:06→22:07)
[2021-03-15] MEDS: Diphenoxylat/Atrop 2.5-0.025mg TAB PO SCH ×2 (07:22→20:27)
[2021-03-15] MEDS: Senna TAB 8.6 mg TAB PO PRN (07:22)
[2021-03-15] MEDS: D5W 1/2 NS 1000 ml BAG 1,000 ML IV SCH ×2 (07:32→20:39)
[2021-03-15] MEDS: Saline FLUSH-CENTRAL 10 ML SYRINGE CENT\\PICC SCH ×2 (07:45→20:29)
[2021-03-15] MEDS: Ondansetron 4 mg VIAL 2 MG/ML 2 ml VIAL IV PRN (20:24)
[2021-03-16] MEDS ORDERED: HYDROmorphone 0.5 MG/0.5 ML SYRINGE IV SLOW PU ONE (00:52)
[2021-03-16] MEDS ORDERED: HYDROmorphone 0.5 MG/0.5 ML SYRINGE ONE (00:58)
[2021-03-16 06:28] LABS: Hematocrit 27 % (42-52); Mean Corpuscular HGB Conc 33 g/dL (31-36); Mean Corpuscular Hemoglobin 31 pg (27-31); Mean Corpuscular Volume 93 fL (80-94); Mean Platelet Volume 6.9 fL (7.4-10.4); Platelet Count 543 10^3/uL (150-450); Red Blood Count 2.88 10^6 /uL (4.18-5.48); Red Cell Distribution Width 15 % (10-15); White Blood Count 7.3 10^3/uL (3.5-10.8)
[2021-03-16 06:48] LABS: Calcium 8.9 mg/dL (8.6-10.3); EGFR African American 136.7 (>60); Potassium 3.6 mmol/L (3.5-5.0)
[2021-03-16 07:46] LABS: ABS Basophils 0.1 10^3/ul (0-0.2); ABS Eosinophils 0.2 10^3/ul (0-0.6); ABS Lymphocytes 1.1 10^3/ul (1.0-4.8); ABS Monocytes 0.8 10^3/ul (0-0.8); ABS Neutrophils 5.1 10^3/ul (1.5-7.7); Eosinophil % 2.6 %; Lymphocyte % 15.8 %
[2021-03-16] MEDS: oxyCODONE/Acetamin 5/325 mg TAB PO PRN ×2 (07:50→16:18)
[2021-03-16] MEDS: Diphenoxylat/Atrop 2.5-0.025mg TAB PO SCH ×2 (09:03→21:58)
[2021-03-16] MEDS: Saline FLUSH-CENTRAL 10 ML SYRINGE CENT\\PICC SCH ×2 (09:08→21:59)
[2021-03-16] MEDS: D5W 1/2 NS 1000 ml BAG 1,000 ML IV SCH (09:46)
[2021-03-16] MEDS: Nystatin TOP POWDER 15 GM BTL TOPICAL SCH ×2 (09:47→21:59)
[2021-03-17] MEDS: D5W 1/2 NS 1000 ml BAG 1,000 ML IV SCH ×2 (00:21→13:50)
[2021-03-17] MEDS ORDERED: HYDROmorphone 0.5 MG/0.5 ML SYRINGE IV SLOW PU ONE (06:03)
[2021-03-17] MEDS: Nystatin TOP POWDER 15 GM BTL TOPICAL SCH ×2 (09:14→21:34)
[2021-03-17] MEDS: Diphenoxylat/Atrop 2.5-0.025mg TAB PO SCH ×2 (09:14→20:35)
[2021-03-17] MEDS: Saline FLUSH-CENTRAL 10 ML SYRINGE CENT\\PICC SCH ×2 (09:14→21:13)
[2021-03-17] MEDS: oxyCODONE/Acetamin 5/325 mg TAB PO PRN (13:54)
[2021-03-17] MEDS: Ondansetron 4 mg VIAL 2 MG/ML 2 ml VIAL IV PRN (20:36)
[2021-03-18] MEDS: D5W 1/2 NS 1000 ml BAG 1,000 ML IV SCH ×2 (02:52→20:20)
[2021-03-18] MEDS: Diphenoxylat/Atrop 2.5-0.025mg TAB PO SCH ×2 (09:13→23:06)
[2021-03-18] MEDS: Saline FLUSH-CENTRAL 10 ML SYRINGE CENT\\PICC SCH ×3 (09:14→23:07)
[2021-03-18] MEDS: Nystatin TOP POWDER 15 GM BTL TOPICAL SCH ×2 (09:16→23:07)
[2021-03-18] MEDS: Prochlorperazine 5 mg/ml 2 ml VIAL (10 mg) IV PRN (23:06)
[2021-03-18] MEDS: oxyCODONE/Acetamin 5/325 mg TAB PO PRN (23:07)
[2021-03-19] MEDS: Diphenoxylat/Atrop 2.5-0.025mg TAB PO SCH ×2 (08:32→20:45)
[2021-03-19] MEDS: Saline FLUSH-CENTRAL 10 ML SYRINGE CENT\\PICC SCH ×2 (08:33→20:53)
[2021-03-19] MEDS: Nystatin TOP POWDER 15 GM BTL TOPICAL SCH ×2 (11:59→20:52)
[2021-03-19] MEDS: oxyCODONE/Acetamin 5/325 mg TAB PO PRN (15:31)
[2021-03-20] MEDS: Saline FLUSH-CENTRAL 10 ML SYRINGE CENT\\PICC SCH ×2 (10:03→21:03)
[2021-03-20] MEDS: Diphenoxylat/Atrop 2.5-0.025mg TAB PO SCH ×2 (10:04→21:00)
[2021-03-20] MEDS: Nystatin TOP POWDER 15 GM BTL TOPICAL SCH ×2 (10:09→21:03)
[2021-03-20] MEDS: Prochlorperazine 5 mg/ml 2 ml VIAL (10 mg) IV PRN (21:33)
[2021-03-21 05:37] LABS: ABS Basophils 0.1 10^3/ul (0-0.2); ABS Eosinophils 0.1 10^3/ul (0-0.6); ABS Lymphocytes 1.2 10^3/ul (1.0-4.8); ABS Monocytes 1.2 10^3/ul (0-0.8); ABS Neutrophils 11.7 10^3/ul (1.5-7.7); Eosinophil % 0.5 %; Hematocrit 30 % (42-52); Hemoglobin 9.9 g/dL (14.0-18.0); Lymphocyte % 8.7 %; Mean Corpuscular HGB Conc 33 g/dL (31-36); Mean Corpuscular Hemoglobin 30 pg (27-31); Mean Corpuscular Volume 91 fL (80-94); Mean Platelet Volume 7.1 fL (7.4-10.4); Platelet Count 542 10^3/uL (150-450); Red Cell Distribution Width 15 % (10-15); White Blood Count 14.2 10^3/uL (3.5-10.8)
[2021-03-21 05:56] LABS: Calcium 9.8 mg/dL (8.6-10.3); EGFR African American 118.2 (>60); EGFR Non-African American 97.7 (>60); Magnesium 1.8 mg/dL (1.9-2.7); Potassium 3.6 mmol/L (3.5-5.0)
[2021-03-21] MEDS: Prochlorperazine 5 mg/ml 2 ml VIAL (10 mg) IV PRN (08:01)
[2021-03-21] MEDS ORDERED: Iohexol 300 (CONTRAST) 10 ML SDV IV ONE (11:21)
[2021-03-21] MEDS: Nystatin TOP POWDER 15 GM BTL TOPICAL SCH ×2 (12:50→22:25)
[2021-03-21] MEDS: Diphenoxylat/Atrop 2.5-0.025mg TAB PO SCH ×2 (12:51→22:28)
[2021-03-21] MEDS: Saline FLUSH-CENTRAL 10 ML SYRINGE CENT\\PICC SCH ×2 (12:52→22:30)
[2021-03-21] MEDS ORDERED: ZOSYN 3.375 GM x ONE DOSE over 30 miuntes IV (16:30)
[2021-03-21] MEDS ORDERED: Zosyn per Pharmacy NOTE FOLLOW UP SCH (17:00)
[2021-03-21] MEDS: Piperacillin/Tazobac ADVAN 3.375 GM in NS 0.9% 100 ml BAG 100 ML IV SCH (22:27)
[2021-03-22] MEDS: Piperacillin/Tazobac ADVAN 3.375 GM in NS 0.9% 100 ml BAG 100 ML IV SCH ×3 (06:22→21:48)
[2021-03-22] MEDS: Diphenoxylat/Atrop 2.5-0.025mg TAB PO SCH ×2 (08:56→21:15)
[2021-03-22] MEDS: Saline FLUSH-CENTRAL 10 ML SYRINGE CENT\\PICC SCH ×3 (08:59→21:48)
[2021-03-22] MEDS: Nystatin TOP POWDER 15 GM BTL TOPICAL SCH ×2 (09:30→21:48)
[2021-03-22] MEDS ORDERED: NS 0.9% 500 ml BAG 500 ML IV ONE (11:34)
[2021-03-22] MEDS ORDERED: Metoprolol Tartrate 5 mg VIAL 5 ml VIAL (1 mg/ml) IV ONE (11:36)
[2021-03-22] MEDS ORDERED: fentaNYL 100 mcg/2 ml 50 MCG/ML VIAL ONE (15:22)
[2021-03-22] MEDS ORDERED: Metoprolol Tartrate 5 mg VIAL 5 ml VIAL (1 mg/ml) IV PRN (19:28)
[2021-03-23 04:33] LABS: ABS Eosinophils 0.1 10^3/ul (0-0.6); ABS Lymphocytes 0.5 10^3/ul (1.0-4.8); ABS Monocytes 0.8 10^3/ul (0-0.8); ABS Neutrophils 15.3 10^3/ul (1.5-7.7); Eosinophil % 0.9 %; Hematocrit 26 % (42-52); Hemoglobin 8.7 g/dL (14.0-18.0); Lymphocyte % 2.8 %; Mean Corpuscular HGB Conc 34 g/dL (31-36); Mean Corpuscular Hemoglobin 30 pg (27-31); Mean Corpuscular Volume 90 fL (80-94); Mean Platelet Volume 7.3 fL (7.4-10.4); Platelet Count 451 10^3/uL (150-450); Red Blood Count 2.88 10^6 /uL (4.18-5.48); Red Cell Distribution Width 15 % (10-15); White Blood Count 16.7 10^3/uL (3.5-10.8)
[2021-03-23 04:51] LABS: Calcium 9.7 mg/dL (8.6-10.3); EGFR Non-African American 38.9 (>60)
[2021-03-23] MEDS: Piperacillin/Tazobac ADVAN 3.375 GM in NS 0.9% 100 ml BAG 100 ML IV SCH ×3 (06:06→21:22)
[2021-03-23] MEDS ORDERED: Lactated Ringers 1000 ml BAG 1,000 ML IV ONE (09:03)
[2021-03-23] MEDS ORDERED: Digoxin IV 0.5 MG/2 ML AMP (0.25 MG/ML) IV SLOW PU ONE (10:03)
[2021-03-23] MEDS: Diphenoxylat/Atrop 2.5-0.025mg TAB PO SCH ×2 (10:05→21:11)
[2021-03-23] MEDS: Nystatin TOP POWDER 15 GM BTL TOPICAL SCH ×2 (10:17→21:14)
[2021-03-23] MEDS: Saline FLUSH-CENTRAL 10 ML SYRINGE CENT\\PICC SCH ×2 (10:17→21:15)
[2021-03-23 12:17] LABS: Urine Appearance Turbid; Urine Bilirubin Negative (Negative); Urine Blood 3+ (Negative); Urine Color Amber; Urine Glucose Negative (Negative); Urine Ketones Negative (Negative); Urine Nitrite Negative (Negative); Urine Protein 2+(100 mg/dL) (Negative); Urine Specific Gravity 1.053 (1.002-1.030); Urine Urobilinogen Negative (Negative)
[2021-03-23 12:47] LABS: Urine Bacteria 1+ (Absent); Urine Red Blood Cell 3+(>10/hpf) (Absent); Urine White Blood Cell 3+(>20/hpf) (Absent); Urine Yeast Present (Absent)
[2021-03-23] MEDS: Prochlorperazine 5 mg/ml 2 ml VIAL (10 mg) IV PRN (21:31)
[2021-03-24] MEDS: Piperacillin/Tazobac ADVAN 3.375 GM in NS 0.9% 100 ml BAG 100 ML IV SCH ×2 (05:32→13:35)
[2021-03-24 05:45] LABS: ABS Basophils 0.1 10^3/ul (0-0.2); ABS Eosinophils 0.2 10^3/ul (0-0.6); ABS Lymphocytes 0.6 10^3/ul (1.0-4.8); ABS Monocytes 0.7 10^3/ul (0-0.8); ABS Neutrophils 13.2 10^3/ul (1.5-7.7); Eosinophil % 1.4 %; Hematocrit 28 % (42-52); Hemoglobin 8.9 g/dL (14.0-18.0); Mean Corpuscular HGB Conc 33 g/dL (31-36); Mean Corpuscular Hemoglobin 30 pg (27-31); Mean Corpuscular Volume 91 fL (80-94); Mean Platelet Volume 7.5 fL (7.4-10.4); Platelet Count 406 10^3/uL (150-450); Red Blood Count 3.03 10^6 /uL (4.18-5.48); Red Cell Distribution Width 15 % (10-15); White Blood Count 14.8 10^3/uL (3.5-10.8)
[2021-03-24 06:04] LABS: Calcium 9.8 mg/dL (8.6-10.3); EGFR African American 34.7 (>60); EGFR Non-African American 28.7 (>60); Potassium 3.5 mmol/L (3.5-5.0)
[2021-03-24] MEDS: Saline FLUSH-CENTRAL 10 ML SYRINGE CENT\\PICC SCH ×2 (08:13→19:58)
[2021-03-24] MEDS: Diphenoxylat/Atrop 2.5-0.025mg TAB PO SCH ×2 (09:12→19:53)
[2021-03-24] MEDS: Nystatin TOP POWDER 15 GM BTL TOPICAL SCH ×2 (09:12→19:54)
[2021-03-24] MEDS ORDERED: NS 0.9% 500 ml BAG 500 ML IV ONE (13:19)
[2021-03-24] MEDS: Prochlorperazine 5 mg/ml 2 ml VIAL (10 mg) IV PRN (19:53)
[2021-03-25] MEDS: Piperacillin/Tazobac ADVAN 3.375 GM in NS 0.9% 100 ml BAG 100 ML IV SCH ×2 (02:16→15:45)
[2021-03-25 04:26] LABS: ABS Basophils 0.1 10^3/ul (0-0.2); ABS Eosinophils 0.2 10^3/ul (0-0.6); ABS Lymphocytes 0.6 10^3/ul (1.0-4.8); ABS Monocytes 0.7 10^3/ul (0-0.8); ABS Neutrophils 10.6 10^3/ul (1.5-7.7); Eosinophil % 1.4 %; Hematocrit 26 % (42-52); Hemoglobin 8.8 g/dL (14.0-18.0); Lymphocyte % 4.9 %; Mean Corpuscular HGB Conc 34 g/dL (31-36); Mean Corpuscular Hemoglobin 30 pg (27-31); Mean Corpuscular Volume 90 fL (80-94); Mean Platelet Volume 6.8 fL (7.4-10.4); Platelet Count 428 10^3/uL (150-450); Red Blood Count 2.91 10^6 /uL (4.18-5.48); Red Cell Distribution Width 15 % (10-15)
[2021-03-25 04:45] LABS: EGFR African American 30.9 (>60); EGFR Non-African American 25.6 (>60); Potassium 3.5 mmol/L (3.5-5.0)
[2021-03-25] MEDS: Diphenoxylat/Atrop 2.5-0.025mg TAB PO SCH ×2 (12:56→23:26)
[2021-03-25] MEDS: Saline FLUSH-CENTRAL 10 ML SYRINGE CENT\\PICC SCH ×2 (12:57→23:28)
[2021-03-25] MEDS: Nystatin TOP POWDER 15 GM BTL TOPICAL SCH ×2 (12:57→21:37)
[2021-03-25] MEDS: HYDROmorphone 0.5 MG/0.5 ML SYRINGE IV SLOW PU PRN ×2 (14:30→21:24)
[2021-03-26] MEDS: Piperacillin/Tazobac ADVAN 3.375 GM in NS 0.9% 100 ml BAG 100 ML IV SCH (02:51)
[2021-03-26] MEDS: Diphenoxylat/Atrop 2.5-0.025mg TAB PO SCH (07:47)
[2021-03-26] MEDS: Saline FLUSH-CENTRAL 10 ML SYRINGE CENT\\PICC SCH (07:48)
[2021-03-26] MEDS: Nystatin TOP POWDER 15 GM BTL TOPICAL SCH (08:19)
[2021-03-26 11:26] VITALS: BP 124/79
== END 2021-03-26 13:45 | DRG 329 ==
LOC: ED 07:11 → SSU 09:56 → UNDODISIN 10:32 → ICU 10:59 → SSU 02-28 11:53
PROVIDERS: ADMIT Surgery; ATTEND Surgery Surgical Critical Care